=== PATIENT | male | born 1970 | race Caucasian/White ===

== ENCOUNTER 2018-08-21 10:27 | Day surgery (SDC) | payer BC, OTHER ==
[2018-08-15 10:20] LABS: HEMATOCRIT 41.2 % (37.9-51.0); HEMOGLOBIN 14.1 g/dL (13.5-17.0); MEAN CORPUSCULAR HGB CONC 34.3 g/dL (32.0-36.0); MEAN CORPUSCULAR VOLUME 90 fl (80-97); PLATELET COUNT 209 10^3/uL (150-450); RED BLOOD COUNT 4.57 10^6/uL (4.35-5.55); RED CELL DISTRIBUTION WIDTH 13.1 % (11.5-14.0); WHITE BLOOD COUNT 5.6 10^3/uL (4.0-10.5)
[~2018-08-21 10:27] MED LIST: ACETAMINOPHEN 325 MG TABLET PO PRN; CEFAZOLIN 1 GM/D5W RTU 1 GM/50 ML RTUPB IV PRN; HYDROMORPHONE HCL INJ/PF 2 MG/ML AMPULE ONE; LACTATED RINGERS 1000 ML IV PRN; LIDOCAINE 0.5% INJ-PF (5 MG/ML) 50 ML SDV SUBCUT PRN; MIDAZOLAM 2 MG/2 ML INJ ONE; PROPOFOL INJ 200 MG/20 ML VIAL IV ONE
[2018-08-21] MEDS ORDERED: BUPIVACAINE HCL 0.5%-EPI 1:200000 INJ/PF 30 ML VIAL ONE (10:34)
[2018-08-21] MEDS ORDERED: CEFAZOLIN 1 GM/D5W RTU 1 GM/50 ML RTUPB IV ONE (10:50)
[2018-08-21] MEDS ORDERED: EPHEDRINE SULFATE INJ 50 MG/1 ML AMPULE ONE (12:22)
[2018-08-21] MEDS ORDERED: EPINEPHRINE INJ/PF 1 MG/1 ML AMPULE ONE (12:23)
[2018-08-21] MEDS ORDERED: EPINEPHRINE INJ 1 MG/10 ML DISP.SYRIN ONE (12:25)
[2018-08-21] MEDS ORDERED: ATROPINE SULFATE INJ 1 MG/10 ML DISP.SYRIN IV ONE (12:25)
[2018-08-21] MEDS ORDERED: OXYCODONE-ACETAMINOPHEN 5-325 MG TABLET PO PRN ×3 (13:09→14:27)
[2018-08-21] MEDS ORDERED: MEPERIDINE HCL/PF INJ 25 MG/1 ML DISP.SYRIN IV PRN (13:09)
[2018-08-21] MEDS ORDERED: DIPHENHYDRAMINE HCL 50 MG/ML VIAL IV PRN (13:09)
[2018-08-21] MEDS ORDERED: MORPHINE SULFATE 10 MG/ML INJ IV PRN (13:09)
[2018-08-21] MEDS ORDERED: FENTANYL CITRATE INJ/PF 100 MCG/2 ML AMPUL IV PRN ×3 (13:09)
[2018-08-21] MEDS ORDERED: PROMETHAZINE HCL INJ 25 MG/1 ML VIAL IV PRN (13:09)
[2018-08-21] MEDS ORDERED: SUCCINYLCHOLINE CHLORIDE INJ 200 MG/10 ML VIAL ONE (13:42)
[2018-08-21] MEDS ORDERED: ONDANSETRON HCL INJ/PF 4 MG/2 ML SDV ONE (13:42)
[2018-08-21] MEDS ORDERED: DEXAMETHASONE SOD PHOSPHATE INJ 4 MG/1 ML VIAL ONE (13:42)
[2018-08-21] MEDS ORDERED: ROCURONIUM BROMIDE INJ 50 MG/5 ML VIAL IV ONE (13:42)
[2018-08-21] MEDS ORDERED: KETOROLAC TROMETHAMINE 60 MG/2 ML SDV ONE (13:42)
[2018-08-21] MEDS ORDERED: GLYCOPYRROLATE 1 MG/5 ML SYRINGE ONE (13:42)
--- NOTE | 2018-08-21 13:42 | Operative Report ---
Nonrecallable Operative Report DATE OF SURGERY: 08/21/18 PREOPERATIVE DIAGNOSIS: bilateral inguinal hernia POSTOPERATIVE DIAGNOSIS: bilateral inguinal hernia. OPERATION: laparoscopic repair of bilat inguinal hernia SURGEON: OLAF GEE ANESTHESIA: GA COMPLICATIONS: none ESTIMATED BLOOD LOSS: 0 INTRAOPERATIVE FINDINGS: see dictation PROCEDURE: see dictation
--- NOTE | 2018-08-21 13:43 | Discharge Summary ---
Discharge Summary (SDC) - Discharge Final Diagnosis: bilateral inguinal hernia Date of Surgery: 08/21/18 Discharge Date: 08/21/18 Condition: Good Referrals: ATUL BARRAGAN PA-C [Primary Care Provider] - Discharge Diet: As Tolerated Discharge Activity: Activity As Tolerated, No Lifting Over 10 Pounds Report the Following to Your Physician Immediately: Nausea, Vomiting, Increase in Pain, Fever over 101 Degrees, Unusual Bleeding - needs a f/u with me in 2-3 wks.
--- NOTE | 2018-08-21 14:20 | OPERATIVE REPORT E ---
Operative Report NAME: TANYA FRANCO JR : 1970 AGE: 48Y DATE OF SURGERY: 08/21/2018 ROOM: PREOPERATIVE DIAGNOSIS: Bilateral inguinal hernia. POSTOPERATIVE DIAGNOSIS: Bilateral inguinal hernia. OPERATIVE PROCEDURE: Laparoscopic repair of bilateral inguinal hernia. SURGEON: OLAF GEE M.D. PROCEDURE: The patient was brought to the operating room in awake, alert, and stable condition, placed on the operating table in supine position, induced under general anesthesia, and intubated. A Shankar catheter was placed. The abdomen was prepped and draped in the usual sterile manner for the procedure. A curvilinear infraumbilical incision was made with a 15-blade. Dissection carried down through subcutaneous tissue with Bovie cautery. The anterior rectus sheath was identified and was opened transversely. The rectus muscle was retracted laterally and the space maker balloon was placed underneath the muscle and on top of the posterior sheath. It was manipulated to the pubic symphysis and insufflated under direct vision pushing the peritoneum posteriorly away from the rectus muscle. Once this was done, the space maker balloon was removed and the balloon tip port was placed in through that space. It was then insufflated and we then instituted the retroperitoneal insufflation. With the scope, we identified the retroperitoneal structures. We identified the Jesse's ligament, the rectus muscle anteriorly laterally, the transversalis muscle, and the epigastric artery vein on both sides. Attention was first turned to the left side. The patient had an indirect inguinal hernia that was easily identified. The cord structures were then identified. The femoral and iliac vein junction was also identified and preserved. We mobilized the cord structures and then we identified the transversalis muscle laterally. We mobilized the sac away from the cord structure and posterior *------* the sac, and then using polypropylene mesh, measured approximately 6 cm long x 4 cm wide with a slit down the side. It was placed into the retroperitoneum, attached anteriorly to the rectus fascia, posteriorly to the Jesse's ligament, laterally to the transversalis fascia. We wrapped the cord with it and then turned attention to the right side. Similarly, the patient had more of a direct defect; however, there was a sac that was extending down onto the cord structures just to through the internal ring. This sac was mobilized away from the cord structures, and we created a space behind the cord structures. We passed a similar piece of mesh into the retroperitoneum, fixed it posteriorly to Jesse's ligament, anteriorly to the rectus fascia, laterally transversalis fascia, and wrapped the cord with that mesh, and they were all fixed to these structures with the AbsorbaTack. Once the mesh was situated and placed correctly and the AbsorbaTack's were in place, we also made sure that we did not injure the lateral femoral cutaneous nerve laterally. We then reduced the pneumoretroperitoneum and allowed it to drop back down and fixed the mesh in place. Once this was done, we removed the ports. We closed the fascial defect anteriorly underneath the umbilical incision with 0 Vicryl in a figure of eight fashion, anesthetized all 3 skin incisions with Marcaine solution, and closed the skin with intracuticular Biosyn. Steri-Strips completed the procedure. Estimated blood loss was negligible. Sponge and needle counts were correct x2. The patient was awakened in the operating room, extubated, and transferred to recovery in stable condition. No complications. DICTATING PHYSICIAN: OLAF GEE M.D. [id number] PHY#: [id number] ID: [id number] JOB#: [id number] ACCT: [id number] cc:OLAF GEE M.D. >
[2018-08-21] MEDS ORDERED: OXYCODONE-ACETAMINOPHEN 5-325 MG TABLET ONE (15:01)
[2018-08-21 20:17] VITALS: BP 133/81
== END 2018-08-21 16:10 | disposition home or self-care (01) ==
LOC: OROUT 10:27
PROVIDERS: ATTEND Surgery
DX: K40.20 Bilateral inguinal hernia, without obstruction or gangrene, not specified as recurrent (principal); E03.9 Hypothyroidism, unspecified; Z87.891 Personal history of nicotine dependence; Z79.899 Other long term (current) drug therapy
CPT/HCPCS: 36415; 85027; 00840; 49505; C1781; J2250; J0461; J3490 ×4; J0690; J1100; J1885; J1170; J0330; J2405; J2704; 840; J0171